=== PATIENT | female | born 1965 | race African-American/Black ===

== ENCOUNTER 2017-09-19 09:44 | Emergency (ER) | payer OTHER ==
[2017-09-19 10:20] VITALS: BP 136/74; PULSE 70; TEMP 98; BMI 38.2
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
== END 2017-09-19 12:25 | disposition home or self-care (01) ==
LOC: JERFT 09:44
DX: S00.83XA Contusion of other part of head, initial encounter (principal); S13.4XXA Sprain of ligaments of cervical spine, initial encounter; V73.5XXA Driver of bus injured in collision with car, pick-up truck or van in traffic accident, initial encounter; Y92.412 Parkway as the place of occurrence of the external cause; Y93.89 Activity, other specified; Y99.8 Other external cause status
CPT/HCPCS: 99281-25